=== PATIENT | male | born 1975 | race Caucasian/White ===

== ENCOUNTER 2020-08-22 17:54 | Emergency (ER) | payer OTHER ==
[~2020-08-22] VITALS: Ht 182.9 cm; Wt 115.9 kg
[2020-08-22] MEDS ORDERED: IV NORMAL SALINE 1000ML BAG 1,000 ML IV ONE (19:45)
[2020-08-22 20:04] VITALS: BP 140/84
[2020-08-22 20:04] LABS: BASO # 0.1 x10^3/uL (0.0-0.2); BASO % 1 % (0-3); EOS # 0.3 x10^3/uL (0.0-0.7); EOS % 5 % (0-3); HEMATOCRIT 48.9 % (39.0-53.0); HEMOGLOBIN 16.7 g/dL (13.0-17.5); LYMPH # 1.9 x10^3/uL (1.0-4.8); LYMPH % 26 % (24-48); MEAN CORPUSCULAR HEMOGLOBIN 30 pg (25-35); MEAN CORPUSCULAR HGB CONC 34 g/dL (31-37); MEAN CORPUSCULAR VOLUME 87 fL (79-100); MONO # 0.8 x10^3/uL (0.0-1.1); MONO % 10 % (0-9); NEUT # 4.3 x10^3/uL (1.8-7.7); NEUT % 58 % (31-73); PLATELET COUNT 353 x10^3/uL (140-400); RED BLOOD COUNT 5.59 x10^6/uL (4.30-5.70); RED CELL DISTRIBUTION WIDTH 13.1 % (11.5-14.5); WHITE BLOOD COUNT 7.4 x10^3/uL (4.0-11.0)
[2020-08-22 20:19] LABS: CALCIUM 9.2 mg/dL (8.5-10.1); CREATININE 1.2 mg/dL (0.7-1.3); GFR 65.8; POTASSIUM 4.1 mmol/L (3.5-5.1)
[2020-08-22 20:25] LABS: ALBUMIN 4.5 g/dL (3.4-5.0); ALBUMIN/GLOBULIN RATIO 1.5 (1.0-1.7); TOTAL BILIRUBIN 1.1 mg/dL (0.2-1.0); TOTAL PROTEIN 7.5 g/dL (6.4-8.2)
[2020-08-22] MEDS ORDERED: CONTRAST GIVEN. MC PRN (20:45)
[2020-08-22] MEDS ORDERED: IOHEXOL 300 MG/ML 100ML VIAL. IV ONE (21:00)
[2020-08-22 21:50] LABS: BILIRUBIN,URINE NEGATIVE (NEG); CLARITY,URINE CLEAR; COLOR,URINE YELLOW; NITRITE,URINE NEGATIVE (NEG); PH,URINE 5.5 (<5.0-8.0); PROTEIN,URINE NEGATIVE (NEG-TRACE)
--- NOTE | 2020-08-22 21:55 | RAD ---
Exam: CT of abdomen and pelvis with contrast INDICATION: Lower abdominal pain TECHNIQUE: Sequential axial images through the abdomen and pelvis obtained following the administrati on of 75 mL of Isovue-370 IV contrast. Sagittal and coronal reformatted images were reconstructed fro m the axial data and reviewed. Exposure: One or more of the following in the visualized dose reduction techniques were utilized for this examination: 1. Automated exposure control 2. Adjustment of the MA and/or KV according to patient size 3. Use of iterative of reconstructive technique Comparisons: None FINDINGS: Heart size is normal. No pericardial effusion. Strandy opacities at dependent portion lungs likely re presenting atelectasis. Liver, spleen, pancreas and adrenals are unremarkable. Gallbladder is partially distended. No perinephric inflammation or hydronephrosis. No renal or ureteral calculi are identified. Bladder is partially distended and not well evaluated. Prostate is not enlarged. There is extensive fat stranding and wall thickening involving the distal sigmoid colon/rectum with p erivesicular fat stranding noted. There is a large amount stool noted in the remainder of the colon. Appendix is normal. Small bowel is unremarkable. No free intra-abdominal air or fluid. Abdominal aorta has a normal course caliber. Abdominal vasculature is patent. No enlarged intra-abdominal lymph nodes are identified. No suspicious osseous lesions or acute fractures. IMPRESSION: 1. Wall thickening involving the distal sigmoid colon with extensive adjacent stranding and edema. F indings could relate to colitis may be infectious or inflammatory in etiology. Colonoscopy posttreatm ent to ensure no underlying neoplasm is recommended. 2. Large amount stool noted in the colon, correlate for constipation. Electronically signed by: Jil Tamayo MD (08/22/2020 9:53 PM) [facility]
[2020-08-22 22:02] LABS: WBC,URINE RARE /HPF (0-4)
[2020-08-22 22:03] LABS: RBC,URINE RARE /HPF (0-2)
[2020-08-22 22:04] LABS: BACTERIA,URINE 0 /HPF (0-FEW)
[2020-08-22] MEDS ORDERED: POLY119P4 PO (22:39)
--- NOTE | 2020-08-22 22:44 | ED.ADGEN ---
Past Medical History Past Medical History: No Pertinent History Past Surgical History: No Surgical History Smoking Status: Never Smoker Alcohol Use: None General Adult EDM: Chief Complaint: CONSTIPATION HPI: HPI: Patient is a 45 year old male who presents emergency department with complaints of constipation for the last 3 weeks. Patient reports pain and cramping in his lower abdomen and low back. He states that his back pain does not worsen with movement and does not radiate to his legs. Patient has been seen at 2 different ERs for the same problem, he denies having any imaging other than an x-ray of his abdomen. Patient reports he has tried taking magnesium citrate twice and he also has tried drinking a whole bottle of MiraLAX with no relief of his problem. He denies any fever, nausea, vomiting, cough, shortness of breath, chest pain, dysuria, hematuria, bloody stools, body aches, fatigue, or rash. Patient states that he takes Adderall daily he denies any use of opiate medications or illicit drugs. He currently rates his discomfort a 10 out of 10 on the pain scale and describes it as a pressure. He denies any alleviating factors. Review of Systems: Review of Systems: Complete ROS is negative unless otherwise noted in HPI. Current Medications: Current Medications Medications (Trade) Dose Ordered Sig/Paulino Start Time Stop Time Status Last Admin Dose Admin Info (CONTRAST GIVEN -- Rx MONITORING) 1 each PRN DAILY PRN 08/22/20 20:45 08/24/20 20:44 Iohexol (Omnipaque 300 Mg/ml) 75 ml 1X ONCE 08/22/20 21:00 08/22/20 21:01 DC 08/22/20 21:25 75 ML Sodium Chloride 1,000 ml @ 1,000 mls/hr 1X ONCE 08/22/20 19:45 08/22/20 20:44 DC 08/22/20 20:07 1,000 MLS/HR Allergies: Allergies: Allergies Coded Allergies Type Severity Reaction Last Updated Verified No Known Drug Allergies 08/22/20 No Physical Exam: PE: See Above Constitutional: Well developed, well nourished, no acute distress, non-toxic appearance. [] HENT: Normocephalic, atraumatic, bilateral external ears normal, nose normal. [] Eyes: PERRLA, EOMI, conjunctiva normal, no discharge. [] Neck: Normal range of motion, no stridor. [] Cardiovascular:Heart rate regular rhythm Lungs & Thorax: Respirations even and unlabored, no retractions, no respiratory distress Abdomen: soft, no tenderness, no palpable mass, no pulsatile mass, no guarding, no rebound tenderness Rectal Exam (Nathalia RN as candle wicker) : Normal tone, No mass, Positive control Stool: Brown Guaiac: Deferred Back: No bony tenderness or deformity, Skin: Warm, dry, no erythema, no rash. [] Extremities: No cyanosis, ROM intact, no edema. [] Neurologic: Alert and oriented X 3, normal motor, normal sensory, no focal deficits noted. [] Psychologic: Affect normal, judgement normal, mood normal. [] Current Patient Data: Labs: Laboratory Tests Test 08/22/20 19:55 08/22/20 21:36 White Blood Count 7.4 x10^3/uL (4.0-11.0) Red Blood Count 5.59 x10^6/uL (4.30-5.70) Hemoglobin 16.7 g/dL (13.0-17.5) Hematocrit 48.9 % (39.0-53.0) Mean Corpuscular Volume 87 fL (79-100) Mean Corpuscular Hemoglobin 30 pg (25-35) Mean Corpuscular Hemoglobin Concent 34 g/dL (31-37) Red Cell Distribution Width 13.1 % (11.5-14.5) Platelet Count 353 x10^3/uL (140-400) Neutrophils (%) (Auto) 58 % (31-73) Lymphocytes (%) (Auto) 26 % (24-48) Monocytes (%) (Auto) 10 % (0-9) H Eosinophils (%) (Auto) 5 % (0-3) H Basophils (%) (Auto) 1 % (0-3) Neutrophils # (Auto) 4.3 x10^3/uL (1.8-7.7) Lymphocytes # (Auto) 1.9 x10^3/uL (1.0-4.8) Monocytes # (Auto) 0.8 x10^3/uL (0.0-1.1) Eosinophils # (Auto) 0.3 x10^3/uL (0.0-0.7) Basophils # (Auto) 0.1 x10^3/uL (0.0-0.2) Sodium Level 141 mmol/L (136-145) Potassium Level 4.1 mmol/L (3.5-5.1) Chloride Level 102 mmol/L (98-107) Carbon Dioxide Level 30 mmol/L (21-32) Anion Gap 9 (6-14) Blood Urea Nitrogen 13 mg/dL (8-26) Creatinine 1.2 mg/dL (0.7-1.3) Estimated GFR (Cockcroft-Gault) 65.8 BUN/Creatinine Ratio 11 (6-20) Glucose Level 91 mg/dL (70-99) Calcium Level 9.2 mg/dL (8.5-10.1) Total Bilirubin 1.1 mg/dL (0.2-1.0) H Aspartate Amino Transferase (AST) 30 U/L (15-37) Alanine Aminotransferase (ALT) 50 U/L (16-63) Alkaline Phosphatase 45 U/L (46-116) L Total Protein 7.5 g/dL (6.4-8.2) Albumin 4.5 g/dL (3.4-5.0) Albumin/Globulin Ratio 1.5 (1.0-1.7) Urine Collection Type Unknown Urine Color Yellow Urine Clarity Clear Urine pH 5.5 (<5.0-8.0) Urine Specific [place] 1.025 (1.000-1.030) Urine Protein Negative mg/dL (NEG-TRACE) Urine Glucose (UA) Negative mg/dL (NEG) Urine Ketones (Stick) Negative mg/dL (NEG) Urine Blood Negative (NEG) Urine Nitrite Negative (NEG) Urine Bilirubin Negative (NEG) Urine Urobilinogen Dipstick 1.0 mg/dL (0.2 mg/dL) Urine Leukocyte Esterase Negative (NEG) Urine RBC Rare /HPF (0-2) Urine WBC Rare /HPF (0-4) Urine Squamous Epithelial Cells Few /LPF Urine Bacteria 0 /HPF (0-FEW) Urine Mucus Slight /LPF Laboratory Tests 08/22/20 19:55 Laboratory Tests 08/22/20 19:55 Vital Signs: Vital Signs Date Time Temp Pulse Resp B/P (MAP) Pulse Ox O2 Delivery O2 Flow Rate FiO2 08/22/20 18:25 98.1 86 16 148/94 (112) 97 Room Air 98.1 EKG: EKG: [] Heart Score: C/O Chest Pain: No Risk Scores: Score 0 - 3: 2.5% MACE over next 6 weeks - Discharge Home Score 4 - 6: 20.3% MACE over next 6 weeks - Admit for Clinical Observation Score 7 - 10: 72.7% MACE over next 6 weeks - Early Invasive Strategies Radiology/Procedures: Radiology/Procedures: PROCEDURE: CT ABD PELV W/ IV CONTRST ONLY Exam: CT of abdomen and pelvis with contrast INDICATION: Lower abdominal pain TECHNIQUE: Sequential axial images through the abdomen and pelvis obtained following the administration of 75 mL of Isovue-370 IV contrast. Sagittal and coronal reformatted images were reconstructed from the axial data and reviewed. Exposure: One or more of the following in the visualized dose reduction techniques were utilized for this examination: 1. Automated exposure control 2. Adjustment of the MA and/or KV according to patient size 3. Use of iterative of reconstructive technique Comparisons: None FINDINGS: Heart size is normal. No pericardial effusion. Strandy opacities at dependent portion lungs likely representing atelectasis. Liver, spleen, pancreas and adrenals are unremarkable. Gallbladder is partially distended. No perinephric inflammation or hydronephrosis. No renal or ureteral calculi are identified. Bladder is partially distended and not well evaluated. Prostate is not enlarged. There is extensive fat stranding and wall thickening involving the distal sigmoid colon/rectum with perivesicular fat stranding noted. There is a large amount stool noted in the remainder of the colon. Appendix is normal. Small bowel is unremarkable. No free intra-abdominal air or fluid. Abdominal aorta has a normal course caliber. Abdominal vasculature is patent. No enlarged intra-abdominal lymph nodes are identified. No suspicious osseous lesions or acute fractures. IMPRESSION: 1. Wall thickening involving the distal sigmoid colon with extensive adjacent stranding and edema. Findings could relate to colitis may be infectious or inflammatory in etiology. Colonoscopy posttreatment to ensure no underlying neoplasm is recommended. 2. Large amount stool noted in the colon, correlate for constipation. Electronically signed by: Jil Tamayo MD (08/22/2020 9:53 PM) [facility] [] Course & Med Decision Making: Course & Med Decision Making Pertinent Labs and Imaging studies reviewed. (See chart for details) 45-year-old male presented emergency department with concerns of constipation. He had been to two other ERs previously with no resolution of his problem. Unremarkable, CMP revealed a mildly elevated bilirubin of 1.1 otherwise unremarkable, UA was unremarkable. CT the patient's abdomen revealed: 1. Wall thickening involving the distal sigmoid colon with extensive adjacent stranding and edema. Findings could relate to colitis may be infectious or inflammatory in etiology. Colonoscopy posttreatment to ensure no underlying neoplasm is recommended. 2. Large amount stool noted in the colon, correlate for constipation. Patient was given a liter of normal saline in the emergency department. 3- I spoke with Dr. Mendes the patient's primary care doctor and advised him of the patient's lab results and CT results. I have a low suspicion for colitis as the patient does not have elevated white blood cell count he is not running a fever, and his abdomen is nontender. I plan to discharge patient home with MiraLAX, and instruct the patient to drink 1 capful of MiraLAX twice daily in a glass of water or juice, and recommend that he tries to eat prunes, and natural laxative that will help to relieve his constipation. I will instruct him to follow-up with Dr. Mendes first thing next week and call for an appointment first thing Tuesday. Prescription was written for MiraLAX 1 capful twice daily in 8 ounces of water or juice, encouraged patient to eat natural laxatives such as prunes. He is to call Dr. Mendes's office first thing Tuesday to schedule follow-up appointment, return to the ER if symptoms worsen or fever develops. Patient verbalized an understanding of home care, medications, follow-up, and return to ED instructions and was in agreement with the plan of care. [] Emy Disclaimer: Emy Disclaimer: This electronic medical record was generated, in whole or in part, using a voice recognition dictation system. Departure Departure Impression: Primary Impression: Constipation Disposition: 01 HOME / SELF CARE / HOMELESS Condition: STABLE Referrals: VIDAL MENDES MD (PCP) Patient Instructions: Constipation, Adult, [id number] Additional Instructions: Fill the prescription and use it as directed. Recommend that you eat prunes, a natural laxative, to help relieve your constipation. Increase your water intake. Call 's office first thing Tuesday for reevaluation, re turn to the ER if your symptoms worsen or fever develops. Scripts Polyethylene Glycol 3350 (MIRALAX) 119 Gm Powder 17 GM PO BID for constipation for 5 Days, #255 GM 0 Refills Drink 1 capful in 8 oz of water or juice twice daily for 5 days then once a day to keep stools regular Prov: MESERET SAXENA APRN 08/22/20 Problem Qualifiers Primary Impression: Constipation Constipation type: unspecified constipation type Qualified Codes: K59.00 - Constipation, unspecified MESERET SAXENA APRN August 22, 2020 22:44
== END 2020-08-22 23:05 | disposition home or self-care (01) ==
LOC: ER 17:54
DX: K59.00 Constipation, unspecified (principal)
CPT/HCPCS: 36415; 74177; 80053; 81001; 85025; 96360; 99285; J7030; Q9967